=== PATIENT | male | born 1960 | race Caucasian/White ===

== ENCOUNTER 2019-05-10 14:49 | Inpatient (IN) ==
[2019-05-10] MEDS ORDERED: NICODERM PATCH TD PRN (16:33)
[2019-05-10] MEDS ORDERED: D5W 1,000 ML IV PRN (16:33)
[2019-05-10] MEDS ORDERED: SENOKOT PO PRN (16:33)
[2019-05-10] MEDS ORDERED: IMODIUM PO PRN ×2 (16:33)
[2019-05-10] MEDS ORDERED: NICOTINE GUM BUCCAL PRN (16:33)
[2019-05-10] MEDS ORDERED: TYLENOL PO PRN (16:33)
[2019-05-10] MEDS ORDERED: MOTRIN PO PRN (16:33)
[2019-05-10] MEDS ORDERED: ZOFRAN IV PRN (16:33)
[2019-05-10] MEDS ORDERED: TUBERSOL ID ONE (16:33)
[2019-05-10] MEDS ORDERED: MAALOX PLUS LIQUID PO PRN (16:33)
[2019-05-10] MEDS ORDERED: ZOFRAN ODT PO PRN (16:33)
[2019-05-10] MEDS ORDERED: ZOFRAN IM PRN (16:33)
[2019-05-10] MEDS ORDERED: PHENOBARBITAL IV PRN (16:33)
[2019-05-10] MEDS ORDERED: DULCOLAX PR PRN (16:33)
[2019-05-10] MEDS ORDERED: DESYREL PO PRN (16:33)
[2019-05-10 17:15] LABS: HEMATOCRIT 39.6 % (42.0-52.0); HEMOGLOBIN 12.8 g/dL (14.0-18.0); MCH 31.1 PG (27-31); MCHC 32.3 g/dL (33-37); MCV 96.4 FL (81-99); MPV 10.5 FL (7.4-10.4); RBC 4.11 XMIL (4.7-6.1); RDW 13.5 % (11.5-14.5); WBC 7.18 X1000 (4.8-10.8)
[2019-05-10 17:26] LABS: URINE SOURCE CLEAN CATCH
[2019-05-10 17:28] LABS: INR 0.86; PROTIME 12.1 Seconds (11.0-16.0)
[2019-05-10] MEDS ORDERED: FLU VACCINE IM ONE (17:29)
[2019-05-10] MEDS ORDERED: PNEUMOVAX 23 IM ONE (17:30)
[2019-05-10] MEDS ORDERED: ATARAX PO PRN (17:31)
[2019-05-10] MEDS ORDERED: SINEMET 25/100 PO PRN (17:31)
[2019-05-10] MEDS ORDERED: LIBRIUM PO PRN (17:31)
[2019-05-10] MEDS ORDERED: ROBAXIN PO PRN (17:31)
[2019-05-10] MEDS ORDERED: BENTYL PO PRN (17:31)
[2019-05-10 17:32] LABS: BILIRUBIN URINE NEGATIVE (NEGATIVE); BLOOD URINE NEGATIVE (NEGATIVE); COLOR YELLOW; GLUCOSE URINE NEGATIVE (NEGATIVE); KETONE URINE NEGATIVE (NEGATIVE); LEUKOCYTES URINE NEGATIVE (NEGATIVE); NITRITE URINE NEGATIVE (NEGATIVE); PH URINE 6.5; PROTEIN URINE TRACE mg/dL (NEGATIVE); SP GRAVITY URINE 1.026; TURBIDITY URINE CLEAR (CLEAR); UROBILINOGEN URINE NORMAL (NORMAL)
[2019-05-10 17:34] LABS: UR EPITHELIAL CELLS <10 /HPF (<10); URINE BACTERIA NEGATIVE /HPF; URINE RBC <10 /HPF (<10); URINE WBC <10 /HPF (<10)
[2019-05-10 17:42] LABS: AGAP 13; ALBUMIN 4.3 g/dL (3.5-5.0); ALKALINE PHOSPHATASE 62 U/L (32-122); AMYLASE 110 U/L (20-200); BUN 12 mg/dL (8-22); CALCIUM 8.9 mg/dL (8.8-10.2); CHLORIDE 100 mmol/L (98-107); COSMO 279; CREATININE 0.8 mg/dL (0.7-1.2); ESTIMATED GFR > 60; GLUCOSE 127 mg/dL (70-104); GOT 18 U/L (10-34); GPT 16 U/L (10-44); LIPASE 122 U/L (13-60); POTASSIUM 3.9 mmol/L (3.5-5.1); SODIUM 139 mmol/L (136-145); TCO2 26 mmol/L (25-35); TOTAL PROTEIN 7.4 g/dL (6.3-8.3)
[2019-05-10 17:45] LABS: UR AMPHETAMINES QUAL NONE DETECTED (NONE DETECT); UR BARBITUATES QUAL NONE DETECTED (NONE DETECT); UR BENZODIAZEPIN QUAL NONE DETECTED (NONE DETECT); UR CANNABINOIDS QUAL NONE DETECTED (NONE DETECT); UR COCAINE QUAL NONE DETECTED (NONE DETECT); UR METHADONE QUAL NONE DETECTED (NONE DETECT); UR METHAMPHETAMINE QUAL NONE DETECTED (NONE DETECT); UR OPIATES QUAL PRESUMPTIVE POSITIVE (NONE DETECT); UR OXYCODONE QUAL NONE DETECTED (NONE DETECT); UR PCP QUAL NONE DETECTED (NONE DETECT); UR PROPOXYPHENE QUAL NONE DETECTED (NONE DETECT); UR TCA QUAL NONE DETECTED (NONE DETECT)
[2019-05-10] MEDS: SUBOXONE 2 MG/0.5 MG FILM SL SCH (18:09)
[2019-05-10] MEDS: SEROQUEL PO PRN (20:35)
[2019-05-11] MEDS: SUBOXONE 2 MG/0.5 MG FILM SL SCH ×2 (05:30→13:17)
[2019-05-11] MEDS ORDERED: ATARAX PO PRN (06:23)
[2019-05-11] MEDS: PROTONIX PO SCH (06:30)
[2019-05-11] MEDS: THERA M PLUS PO SCH (09:13)
[2019-05-11] MEDS: FOLIC ACID PO SCH (09:13)
[2019-05-11] MEDS: VITAMIN B-1 PO SCH (09:13)
[2019-05-11] MEDS: PRINIVIL PO SCH (13:16)
[2019-05-11] MEDS: CYMBALTA PO SCH (13:16)
[2019-05-11] MEDS: ASPIRIN PO SCH (13:16)
[2019-05-11] MEDS: LIPITOR PO SCH (21:02)
[2019-05-11] MEDS: SEROQUEL PO PRN (21:02)
--- NOTE | 2019-05-11 22:05 | PROGRESS NOTE ---
DATE: 05/11/2019 SUBJECTIVE: Patient notes that he is feeling a little bit better. Still having some muscle aches. Still having nausea and abdominal pain. Denies fevers or chills. PHYSICAL EXAMINATION: Vital Signs: Reviewed. Temperature 98 degrees, pulse 74, respiratory rate 18, BP 134/98, saturating 100% on room air. General: Patient is awake, alert, currently in no distress. HEENT: Normocephalic. Neck: Supple. Cardiovascular: Regular rate. Chest: Clear. Abdomen: Soft. Extremities: Moves all extremities. Neurologic: No changes. Skin: Warm, dry. No rashes. ASSESSMENT: 1. Nausea, vomiting. 2. Abdominal pain. 3. Myalgias. 4. Paresthesias. 5. Paroxysmal sweating. 6. Opiate abuse, withdrawal, and stabilization. CONSULTATIONS: None. PLAN: We will continue patient in the hospital, continue Suboxone, continue counseling. Further orders as needed. cc: Amador Diaz MD
[2019-05-12] MEDS: SUBOXONE 2 MG/0.5 MG FILM SL SCH ×2 (01:19→13:42)
[2019-05-12] MEDS: PROTONIX PO SCH (06:07)
[2019-05-12] MEDS: VITAMIN B-1 PO SCH (08:45)
[2019-05-12] MEDS: PRINIVIL PO SCH (08:45)
[2019-05-12] MEDS: FOLIC ACID PO SCH (08:45)
[2019-05-12] MEDS: THERA M PLUS PO SCH (08:45)
[2019-05-12] MEDS: CYMBALTA PO SCH (08:45)
[2019-05-12] MEDS: ASPIRIN PO SCH (08:45)
[2019-05-12] MEDS: LIPITOR PO SCH (20:05)
[2019-05-12] MEDS: SEROQUEL PO PRN (20:06)
--- NOTE | 2019-05-12 21:24 | PROGRESS NOTE ---
DATE: 05/12/2019 SUBJECTIVE: Patient presented to the hospital. Currently complaining of muscle aches although notes they are better. States this morning he is feeling better than he has in quite some time. Denies any fevers or chills. PHYSICAL EXAMINATION: Vital Signs: Reviewed. Temp 97 degrees, pulse 80, respiratory rate 18, BP 102/81. General: Patient is pleasant, currently in no respiratory distress. HEENT: Normocephalic. Neck: Supple. Cardiovascular: Regular rate. Chest: Clear. Abdomen: Soft. Extremities: Moves all extremities. Neurologic: No changes. ASSESSMENT: 1. Nausea and vomiting. 2. Abdominal pain. 3. Myalgias. 4. Paresthesias. 5. Paroxysmal sweating. 6. Opiate abuse, withdrawal and stabilization. PLAN: We will continue patient in the hospital. Continue Suboxone at 4 mg. The patient states that he would prefer to stay on Suboxone as he feels much better. We will continue to follow. cc: Amador Diaz MD
[2019-05-13] MEDS: SUBOXONE 2 MG/0.5 MG FILM SL SCH (01:32)
[2019-05-13] MEDS: PROTONIX PO SCH (06:25)
[2019-05-13 07:52] VITALS: BP 91/67
[2019-05-13] MEDS: THERA M PLUS PO SCH (09:53)
[2019-05-13] MEDS: ASPIRIN PO SCH (09:53)
[2019-05-13] MEDS: VITAMIN B-1 PO SCH (09:53)
[2019-05-13] MEDS: FOLIC ACID PO SCH (09:53)
[2019-05-13] MEDS: CYMBALTA PO SCH (09:53)
[2019-05-13] MEDS: PRINIVIL PO SCH (09:54)
[2019-05-13] MEDS ORDERED: SUBOXONE 2 MG/0.5 MG FILM SL SCH (13:30)
--- NOTE | 2019-05-14 20:14 | DISCHARGE SUMMARY ---
ADMISSION DATE: 05/10/2019 DISCHARGE DATE: 05/13/2019 DISCHARGE DIAGNOSES: 1. Nausea and vomiting. 2. Abdominal pain. 3. Myalgias. 4. Paresthesias. 5. Opiate abuse, withdrawal, and stabilization. CONSULTATIONS: None. PROCEDURES: None. BRIEF HOSPITAL COURSE: The patient is a 58-year-old male who presented to the hospital with nausea, vomiting, abdominal pain, myalgias, paresthesias, paroxysmal sweating. His initial plan was to wean off the Suboxone. However, after he started on the dose, he noted that when he went from 4 mg down to 2, his withdrawal symptoms, which had been completely alleviated, returned, and he would like to stay on Suboxone. We did anger control counselor him on different medication assisted therapies, i.e. Suboxone versus naltrexone. He desired Suboxone, so we did go back up to 4 mg. On discharge, patient is awake, alert. DISPOSITION: Patient is awake, alert. He appears oriented. He is in no current distress. We discussed with him that we need to make sure that his Medicaid PA has been approved for Suboxone prior to discharge. Otherwise, his insurance will not pay for his medication. Stated that we did not do this on day 1 as his entire intent was to wean off. The patient states that he understands and is willing to wait. Discussed with him that he needs outpatient life counseling as well as drug counseling. A short time later, the patient became quite irate, angry, irritated, refused to wait, refused to take his prescription for Suboxone, and left against medical advice. Greater than 30 minutes was spent in total care. cc: Amador Diaz MD
== END 2019-05-13 12:08 | disposition left against medical advice (07) | DRG 894 ==
LOC: DIRADM 14:49 → P.MEDSURG 15:34
PROVIDERS: ADMIT Family Medicine; ATTEND Family Medicine